=== PATIENT | female | born 1995 | race Caucasian/White ===

== ENCOUNTER 2023-04-03 03:38 | Emergency (ER) | payer OTHER, SELFPAY ==
--- NOTE | 2023-04-03 | ECG_ITS ---
Test Reason : CHEST PAIN Blood Pressure : / mmHG Vent. Rate : 087 BPM Atrial Rate : 087 BPM P-R Int : 132 ms QRS Dur : 080 ms QT Int : 370 ms P-R-T Axes : 076 075 062 degrees QTc Int : 445 ms Normal sinus rhythm Normal ECG No previous ECGs available Referred By: Generic ED Physician Electronically Signed By:GUERRERO GUERRERO MD
--- NOTE | ~2023-04-03 | XR_ITS ---
EXAMINATION: XR CHEST CLINICAL INFORMATION: Chest pain COMPARISON: None available. TECHNIQUE: Frontal view of the chest was obtained. FINDINGS: The lungs are clear with no focal consolidation. No evidence of pneumothorax, pulmonary edema, or pleural effusions. The cardiomediastinal silhouette is unremarkable. No acute osseous findings. XR/XR chest 1V IMPRESSION: No acute cardiopulmonary findings.
[2023-04-03 03:52] VITALS: BP 125/87; PULSE 84; RESP 16; TEMP 36.6; O2SAT 100; BMI 18.2
[2023-04-03 04:09] LABS: MANUAL DIFF FLAG NO
[2023-04-03 04:13] LABS: Basophils Absolute Auto 0.1 X10*3/uL (0.0-0.2); Basophils Percent Auto 0.5 % (0-2); Eosinophils Absolute Auto 0.3 X10*3/uL (0.0-0.4); Eosinophils Percent Auto 2.6 % (0-4); Hematocrit 39.2 % (37.0-47.0); Hemoglobin 13.7 g/dl (12.0-16.0); Imm Gran Abs Auto 0.05 X10*3/uL (0.00-0.03); Imm Gran Pct Auto 0.4 % (0.0-0.4); Lymphocytes Absolute Auto 3.9 X10*3/uL (1.2-4.9); Lymphocytes Percent Auto 33.2 % (20-40); Mean Corpuscular HGB Conc 34.9 g/dl (31.0-35.0); Mean Corpuscular Hemoglobin 32.5 pg (27.0-33.0); Mean Corpuscular Volume 92.9 fL (80.0-98.0); Monocytes Absolute Auto 1.1 X10*3/uL (0.1-1.2); Neutrophils Absolute Auto 6.4 x10*3/uL (2.0-8.3); Neutrophils Percent Auto 54.3 % (45-73); Platelet Count 270 X10*3/uL (160-400); Red Blood Count 4.22 X10*6/uL (4.20-5.50); Red Cell Distribution Width 11.7 % (11.0-16.0); White Blood Count 11.8 X10*3/uL (4.8-10.8)
[2023-04-03 04:30] LABS: Alanine Aminotransferase 36 U/L (0-31); Albumin Level 4.6 g/dL (3.5-5.0); Alkaline Phosphatase 62 U/L (39-117); Anion Gap 13 (12-20); Aspartate Amino Transferase 24 U/L (5-31); Bilirubin Total 0.3 mg/dL (0.0-1.0); Blood Urea Nitrogen 15 mg/dL (9-16); Carbon Dioxide 27 mmol/L (22-29); Chloride 102 mmol/L (96-108); Creatinine Clr Calc Pharmacy 77.9; Estimated Glomerular Filt Rate > 60; Glucose Random 103 mg/dL (60-115); Potassium 3.5 mmol/L (3.3-5.1); Sodium 138 mmol/L (135-145); Total Protein 7.6 g/dL (6.5-8.0)
[2023-04-03 04:37] LABS: HCG Quantitative < 2 mIU/mL; Troponin-I High Sensitivity < 2.7 ng/L (<3.5-17.0)
[2023-04-03 06:12] VITALS: BP 112/70; PULSE 71; RESP 16; TEMP 36.9; O2SAT 99
--- NOTE | 2023-04-03 06:12 | ED_ITS ---
HPI - Chest Pain General Chief Complaint: Chest Pain Stated Complaint: Chest Pain Time Seen by Provider: 04/03/23 05:43 History of Present Illness HPI narrative: The patient is a 27-year-old female who says that she started to experience chest pain and left shoulder pain yesterday afternoon at around 15:00. She says the pain has also been in her neck and in her back. The pain is worse when she takes a deep breath. She has not had any definite fever, sweats, chills. She took aspirin and Tums and did not feel any better. Ultimately she came to the emergency room. She says that her mother has had 3 heart attacks and that her mother had her 1st heart attack at age 34. She is therefore very concerned about her own risks for a heart attack at a young age. Additionally the patient says that she has been a smoker until 2 months ago. Patient is quite certain she is not because she has had a tubal ligation. She is not on any control pills. She has had no pain or swelling in her legs. She has had no abdominal pain. No vomiting. She does not think she has had a fever. Related Data Allergies Allergy/AdvReac Type Severity Reaction Status Date / Time No Known Allergies Allergy Verified 04/03/23 03:52 Review of Systems 2 Review of Systems: Yes all other systems are reviewed and are negative FOR[facility]LY [facility] Social History Social History Advance Directives: No Advance Directives Information Provided: No Physical Exam 2 Vital Signs: Vital Signs: Last Vital Signs Temp 98.5 F 04/03/23 06:12 Pulse 71 04/03/23 06:12 Resp 16 04/03/23 06:12 BP 112/70 04/03/23 06:12 Pulse Ox 99 04/03/23 06:12 O2 Del Method Room Air 04/03/23 06:12 BMI result Body Mass Index 18.2 Const: Other: Patient is awake and alert. She does not appear unwell or uncomfortable. She does not seem in distress in any way. HEENT: Other: The appearance of the face is unremarkable. Mucous membranes moist. Face is symmetrical. Eyes: Other: Pupils are round equal, conjunctivae are clear, extraocular movements intact. Neck: Other: No neck swelling. Moving her neck easily. Chest: Other: No definite chest wall tenderness. Resp: Other: Lungs are clear bilaterally. Cardio: Other: The patient has a regular rate and rhythm. I do not appreciate a murmur. GI: Other: The abdomen is soft nontender. Skin: Other: The skin is dry and unremarkable. Neuro: Other: The patient is awake and alert. She has normal mental status. Normal speech. Face is symmetrical. Moves her extremities symmetrically. Seems grossly neurologically intact Extrem: Other: No peripheral edema. No calf swelling or tenderness. No calf asymmetry. Medications Administered Discontinued Medications Generic Name Dose Route Start Last Admin Trade Name Peggy PRN Reason Stop Dose Admin Ketorolac Tromethamine 15 mg 04/03/23 05:52 04/03/23 06:46 Ketorolac Tromethamine 15 Mg/Ml Vial IVPUSH 04/03/23 05:53 15 mg ONCE ONE Administration Medical Decision Making Medical Decision Making [facility] Narrative: The patient is a 27-year-old here for evaluation of chest pain which is largely pleuritic. She also has back pain and left arm pain. She has a family history of early coronary disease. Her EKG is unremarkable. Her pain has been going on for many hours. Her troponin is undetectable. Her white count is mildly elevated 11.8 within normal differential. Her CRP is undetectable. Her D-dimer is undetectable. Clinically the patient looks well. She does not seem to have an acute coronary syndrome, pulmonary embolism, or any significant infectious process. She was given a dose of ketorolac. She is reassured that no dangerous process seems to be at work. She should follow up with regular doctor Lab Data 04/03/23 04:02 04/03/23 04:02 Labs: Lab Results 04/03/23 04/03/23 Range/Units 04:02 06:45 WBC 11.8 H (4.8-10.8) X10*3/uL RBC 4.22 (4.20-5.50) X10*6/uL Hgb 13.7 (12.0-16.0) g/dl Hct 39.2 (37.0-47.0) % MCV 92.9 (80.0-98.0) fL MCH 32.5 (27.0-33.0) pg MCHC 34.9 (31.0-35.0) g/dl RDW 11.7 (11.0-16.0) % Plt Count 270 (160-400) X10*3/uL MPV 10.0 (9.4-12.3) fL Immature Gran % (Auto) 0.4 (0.0-0.4) % Neut % (Auto) 54.3 (45-73) % Lymph % (Auto) 33.2 (20-40) % [place] % (Auto) 9.0 (2-11) % Eos % (Auto) 2.6 (0-4) % Baso % (Auto) 0.5 (0-2) % Lymph # (Auto) 3.9 (1.2-4.9) X10*3/uL [place] # (Auto) 1.1 (0.1-1.2) X10*3/uL Eos # (Auto) 0.3 (0.0-0.4) X10*3/uL Baso # (Auto) 0.1 (0.0-0.2) X10*3/uL Abs Immat Gran (auto) 0.05 H (0.00-0.03) X10*3/uL Absolute Neuts (auto) 6.4 (2.0-8.3) x10*3/uL Absolute Nucleated RBC 0.000 (0.0-0.012) X10*3/uL Nucleated RBC % (auto) 0.0 (0.0-0.2) /100WBC D-Dimer High Sensitivty < 150 NG/ML Sodium 138 (135-145) mmol/L Potassium 3.5 (3.3-5.1) mmol/L Chloride 102 (96-108) mmol/L Carbon Dioxide 27 (22-29) mmol/L Anion Gap 13 (12-20) BUN 15 (9-16) mg/dL Creatinine 0.87 (0.5-1.4) mg/dL Estim Creat Clear Calc 77.9 Estimated GFR > 60 Random Glucose 103 (60-115) mg/dL Calcium 10.0 (8.4-10.2) mg/dL Total Bilirubin 0.3 (0.0-1.0) mg/dL AST 24 (5-31) U/L ALT 36 H (0-31) U/L Alkaline Phosphatase 62 (39-117) U/L Troponin I High Sens < 2.7 (<3.5-17.0) ng/L C-Reactive Protein < 0.04 (< or = 0.50) mg/dL Total Protein 7.6 (6.5-8.0) g/dL Albumin 4.6 (3.5-5.0) g/dL Beta HCG, Quant < 2 mIU/mL Urine Color Straw Urine Appearance Clear Urine pH 7.0 (5.0-9.0) Ur Specific [place] <= 1.005 (1.005-1.025) Urine Protein Negative (Neg-Trace) mg/dL Urine Glucose (UA) Negative (Negative) mg/dL Urine Ketones Negative (Negative) mg/dL Urine Blood Negative (Negative) Urine Nitrite Negative (Negative) Ur Leukocyte Esterase Negative (Negative) Urine RBC 3-5 H (0-2) /HPF Urine WBC 0-5 (0-5) /HPF Ur Squamous Epith Cells 0-2 (0-2) /HPF Urine Bacteria None Seen (None Seen) Hyaline Casts 0-2 (0-2) /LPF Independent Interpretation I performed an independent interpretation of an: EKG Interpretation: EKG at 03:42 shows normal sinus rhythm at 87 beats per minute. It is a normal EKG. Discharge Plan Discharge Clinical Impression: Chest pain Patient Disposition: Home, Self-Care Additional Instructions: Your testing in the emergency department today was very reassuring. There is no sign of a heart attack or a blood clot in your lungs. There is no sign of an infection. Please use acetaminophen as needed for discomfort. Please follow-up with your regular doctor soon to discuss this further. Return to the emergency room with significantly worse.
[2023-04-03 06:14] LABS: C Reactive Protein < 0.04 mg/dL (< or = 0.50)
[2023-04-03] MEDS: Ketorolac Tromethamine 15 MG/ML VIAL IVPUSH (06:46)
[2023-04-03 07:06] LABS: Appearance Urine Clear; Color Urine Straw; Glucose Urine UA Negative (Negative); Leukocyte Esterase Urine Negative (Negative); Nitrite Urine Negative (Negative); Specific Gravity - Urine <= 1.005 (1.005-1.025); Urine Blood Negative (Negative); Urine Ketones Negative (Negative); Urine Protein Negative (Neg-Trace)
[2023-04-03 07:23] LABS: Bacteria Urine None Seen (None Seen); Hyaline Casts Urine 0-2 /LPF (0-2); Squamous Epithelial Cell Urine 0-2 /HPF (0-2); WBC Urine 0-5 /HPF (0-5)
[2023-04-03 07:26] LABS: D Dimer High Sensitivity < 150 NG/ML
[2023-04-03 08:18] VITALS: BP 132/68; PULSE 78; RESP 18; TEMP 36.8; O2SAT 100
== END 2023-04-03 08:20 | disposition home or self-care (01) ==
PROVIDERS: Emergency Provider Emergency Medicine
DX: R07.9 Chest pain, unspecified (principal); M25.512 Pain in left shoulder; M54.2 Cervicalgia; M54.9 Dorsalgia, unspecified
CPT/HCPCS: 36415; 71045; 80053; 81001; 84484; 84702; 85025; 85379; 86140; 93005; 96374; 99285; J1885

== ENCOUNTER → 2023-04-03 03:42 | Outpatient (BNV) | payer OTHER, SELFPAY | PROVIDERS: Emergency Provider Emergency Medicine; Visit Provider Internal Medicine Cardiovascular Disease | DX: R07.9 Chest pain, unspecified (principal) | CPT/HCPCS: 93010 ==

== ENCOUNTER 2025-03-25 13:31 | Outpatient (AMB) | payer OTHER, SELFPAY ==
[2025-03-25 13:38] VITALS: BP 128/80; PULSE 117; TEMP 36.8; O2SAT 99
--- NOTE | 2025-03-25 13:38 | MHC.PC.OV ---
Vital Signs 03/25/25 13:38 Height 5 ft 6 in BP 128/80 Blood Pressure Location Lt brachial Position Sitting Pulse 117 H Pulse Source Pulse Oximeter Temp 98.3 F Temp Source Temporal Artery Scan Pulse Oximetry (%) 99 Oxygen Delivery Method Room Air Intake Visit Reasons: establish care Allergies latex Allergy (Unknown, Verified 03/25/25 13:49) Redness of Skin Medication List - Last Reconciled 03/25/25 by Sheyla Deshpande PA-C clindamycin phosphate 1% 1 appl topical DAILY dexmethylphenidate 2.5 mg PO BID doxycycline hyclate 100 mg PO BID gabapentin 600 mg PO TID propranolol 40 mg PO BID zolpidem 7.5 mg PO BEDTIME Tobacco use date assessed: 03/25/25 Dental Screening Dental Screen Date: 03/25/25 Did you have a dental visit in the last 12 months?: Yes Did you have a dental problem in the last 6 months where you did not have access to dental care?: No Was dental information given to patient?: Patient has dentist HPI establish care HPI Details 29 year old female coming in for the first time. Presenting for establishment of care and management of multiple chronic conditions. The patient has a history of hidradenitis suppurativa, which is managed with clindamycin gel, oral doxycycline twice daily, and benzoyl peroxide wash. The patient reports chronic back and neck pain, which causes cervicogenic headaches. This has been ongoing for three years, and neck X-rays have been negative. Physical therapy with hands-on manipulation provides temporary relief, while trigger point injections were not effective. The patient manages the pain with gabapentin three times a day. She is currently following with [facility]. 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 The patient feels that physical therapists do not understand the hypermobility, which impacts the effectiveness of treatment. For anxiety and ADHD, the patient follows with a psychiatrist and takes dexmethylphenidate. The patient takes propranolol for anxiety, which was prescribed by a previous primary care provider and has been effective for 15 years. There is a history of passing out, most recently within the last three months, particularly upon standing up quickly. The patient notes that increased salt intake and high water consumption help with these symptoms and is scheduled for a cardiology evaluation in May for a possible POTS diagnosis. Psych: H[facility] eye: [facility] spine: Charli [facility] cardiology: [facility] Surgical History S/P endometrial ablation S/P tubal ligation Family History Father No problems noted. Mother Melanoma Maternal Grandmother Bowel cancer Maternal Grandfather COPD (chronic obstructive pulmonary disease) Heart disease Social History Housing: House Patient Tobacco Use Status: Never used Tobacco service: No Current occupational status: employed Cognitive needs: No Hearing needs: No Vision needs: No Female Reproductive History Menstrual control method: permanent sterilization Permanent Sterilization: BTL Questionnaire PHQ-9 Over the last 2 weeks, how often have you been bothered by any of the following problems? 1. Little interest or pleasure in doing things: not at all 2. Feeling down, depressed, or hopeless: not at all 3. Trouble falling or staying asleep, or sleeping too much: nearly every day 4. Feeling tired or having little energy: nearly every day 5. Poor appetite or overeating: not at all 6. Feeling bad about yourself - or that you are a failure or have let yourself or your family down: not at all 7. Trouble concentrating on things, such as reading the newspaper or watching television: not at all 8. Moving or speaking so slowly that other people could have noticed. Or the opposite - being so fidgety or restless that you have been moving around a lot more than usual: not at all 9. Thoughts that you would be better off or of hurting yourself in some way: not at all Total score: 6 Depression Screening Interpretation: Positive Depression Screening Follow-up: Existing condition and In treatment Depression Screening Done: Yes Source: Developed by Drs. Red Lincoln, Rabia Romero, Barrie Busch and colleagues, with an educational migdalia from [employer]. Thrive Questionnaire Date Thrive assessed: 03/25/25 I am a: Patient AUDIT C Alcohol Use Questionnaire (AUDIT-C) 1. How often do you have a drink containing alcohol?: Never 3. How often do you have six or more drinks on one occasion?: Never Total Score: 0 ANTHONY-7 AMB Questionnaire ANTHONY-7 Date ANTHONY - 7 assessed: 03/25/25 Feeling nervous, anxious, or on edge: 0 = Not at all Not being able to stop or control worryin = Not at all Worrying too much about different things: 0 = Not at all Trouble relaxin = Not at all Being so restless that it is hard to sit still: 0 = Not at all Becoming easily annoyed or irritable: 0 = Not at all Feeling afraid as if something awful might happen: 0 = Not at all Total ANTHONY-7 score (0-4 normal; 5-9 mild; 10-14 moderate; 15-21 severe): 0 Source: Developed by Drs. Red Lincoln, Rabia Romero, Barrie Busch and colleagues, with an educational migdalia from [employer]. ANTHONY-7 Assessment Billing ANTHONY-7 Assessment Tool: ANTHONY-7 Assessment 84976 Review of Systems Const Denies body aches, Denies chills, Denies fever(s), Reports headache(s) and Denies poor appetite Eyes Reports no additional complaints ENT Denies dysphagia, Denies dizziness, Reports headache(s) and Denies odynophagia Card Denies chest pain, Denies syncope, Denies edema, Denies irregular heart rhythm, Denies lightheadedness and Denies dyspnea Resp Denies dyspnea GI Denies abdominal pain, Denies constipation, Denies dysphagia, Denies diarrhea, Denies nausea, Denies odynophagia and Denies vomiting Reports no additional complaints Musc Reports as per HPI, Denies abnormal gait and Reports back pain Skin/Breast Reports system reviewed and no additional complaints, except as documented Neuro Denies abnormal gait, Denies dizziness, Denies syncope and Reports headache(s) Psych Reports no additional complaints Physical exam (Primary Care) Vital Signs: Last Vital Signs Temp 98.3 F 03/25/25 13:38 Pulse 117 H 03/25/25 13:38 BP 128/80 03/25/25 13:38 Pulse Ox 99 03/25/25 13:38 Oxygen Delivery Method Room Air 03/25/25 13:38 Tobacco/Smoking Status: Tobacco use Status Tobacco use date assessed 03/25/25 03/25/25 13:40 Patient Tobacco Use Status Never used Tobacco 03/25/25 14:00 PHQ-9: PHQ-9 Score PHQ-9: Total score 6 03/25/25 14:04 Depression Screening Interpretation: Positive Depression Screening Follow-up: Existing condition and In treatment Thrive Assessment: Date of Thrive Assessment Date Thrive assessed 03/25/25 03/25/25 13:58 Const General: cooperative, healthy appearing, comfortable and no acute distress Orientation/consciousness: patient oriented x3 HENMT Head: Yes normocephalic Ears: hearing grossly normal bilaterally General nose exam: Normal external nose present Eyes General: appearance normal, both eyes and all related structures Conjunctivae: conjunctivae normal Neck Neck: Yes full ROM and Yes no lymphadenopathy Resp Effort & Inspection: normal respiratory effort Auscultation: clear to auscultation bilaterally, no crackles, no rales, no rhonchi and no wheezes Cardio Rate: regular rate Rhythm: regular rhythm Skin General skin exam: no rashes or lesions noted Neuro General: patient oriented x3 Gait exam (Neuro): Normal gait present Extrem General: Yes normal to inspection, Yes full ROM and No edema Psych Affect: normal affect Attitude: cooperative Insight: Good insight present (Psych) Judgement: Good judgement present (Psych) Coding Level of Care Code New Pt Level 4 (76566) Diagnoses Insomnia G47.00 Hidradenitis suppurativa L73.2 ADHD F90.9 Anxiety F41.9 Back pain M54.9 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 A prescription refill for doxycycline was sent to [facility]. It was recommended to add [id number] Hibiclens wash two to three times per week. A referral was placed to [facility] for long-term management, and the patient was informed they will call to schedule an appointment. (3) ADHD: Comment: [facility] Haley King Code(s): F90.9 - Attention-deficit hyperactivity disorder, unspecified type Category: Medical Plan: She will continue to follow with her psychiatrist (4) Anxiety: Code(s): F41.9 - Anxiety disorder, unspecified Category: Medical Plan: The patient will continue propranolol, which has been effective for 15 years. A prescription refill was sent to [facility]. The patient follows with a psychiatrist for overall management and declined a referral to a therapist. 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 The plan is to manage symptoms as they arise, such as fitting for braces for joint dislocations if needed. (7) Cervicogenic migraine: Code(s): G43.809 - Other migraine, not intractable, without status migrainosus Category: Medical Plan: The patient will continue taking gabapentin for chronic neck/back pain and associated headaches. Given the limited success with prior interventions like physical therapy and trigger point injections, a referral to neurology was placed to evaluate for other treatment options, such as Botox injections. A referral was also renewed for [facility] at the patient's request for ongoing care. (8) Syncope: Code(s): R55 - Syncope and collapse Category: Medical Plan: The patient will proceed with a cardiology appointment in May at [facility] for a workup for suspected Postural Orthostatic Tachycardia Syndrome (POTS), which will likely include a tilt-table test. For daily management, the patient should continue with increased salt and water intake to manage symptoms. It was advised to avoid extra salt intake just before the tilt-table test to ensure accurate results. Plan She did recently have imaging and blood work completed through [facility] and plan to obtain these notes This note was constructed using voice recognition software. While every effort has been made to ensure accuracy and ward service supervisor, still areas may have been included sometimes these areas may affect the content or meeting of the given symptoms. Total time spent caring for the patient today was 30 minutes. This includes time spent before the visit reviewing the chart, time spent during the visit, and time spent after the visit and documentation. Patient was informed and verbally consented to the use of an ambient scribe for clinic note documentation during this visit. Orders: Referrals Dermatology Referral L73.2 - Hidradenitis suppurativa Neurology Referral G43.809 - Other migraine, not intractable, without status migrainosus Orthopedics Referral M54.9 - Dorsalgia, unspecified Medications: New chlorhexidine gluconate 4% (Hibiclens) 1 appl topically; 2-3 times per week 237 mL 0RF L73.2 - Hidradenitis suppurativa propranolol 40 mg PO BID 180 tabs 0RF doxycycline hyclate 100 mg PO BID 60 caps 0RF doxycycline hyclate 100 mg PO BID 60 caps 0RF propranolol 40 mg PO BID 180 tabs 0RF
--- OUTSIDE RECORDS SUMMARY | 2025-03-25 18:15 | XMS_ITS | Encounter Summary ---
Author Organization [facility] Address [address] [place] [address] Care Team Providers Care Blind Aide Name Role Phone Pcp, No Primary Care Provider Unavailabl e Encounter Details Date Type Department Care Team (Late st Contact Info) Description 06/17/2023 Scanned Document [facility] ([facility]3] Physicians Department of Orthopaedics & Sports Medicine [address] [phone] Jose Miguel Lin MD [address] [place] [id number] Social History Tobacco Use Types Packs/Day Years Used Date Smoking Tobacco: Never Assessed Comments Unknown Sex and Gender Information Value Date Recorded Sex Assigned at Unknown 04/29/2023 9:35 AM EST Legal Sex Female 9:32 AM EST Gender Identity Female 04/29/2023 9:35 AM EST Sexual Orientation Other 04/29/2023 9: 35 AM EST documented as of this encounter Plan of Treatment Not on file documented as of this encounter Visit Diagnoses Not on filedocumented in this encounter Care Teams Blind Aide Relationship Specialty Start Date End Date Pcp, No PCP - General General Medicine 06/29/24 documented as of this encounter
--- OUTSIDE RECORDS SUMMARY | 2025-03-25 18:15 | XMS_ITS | Clinical Summary ---
Author Organization [facility] [address] [place] [address] [place] [phone] Phone Care Team Providers Care Election Clerk Name Role Phone An Christy MD Primary Care Provider Allergies Active Allergy Reactions Criticality Noted Date Comments Latex 08/30/2024 Medications gabapentin (NEURONTIN) 600 mg tablet Take by mouth 3 (three) times a day. Active sertraline (ZOLOFT) 100 mg tablet Take 1 tablet (100 mg total) by mouth 1 (one) time each day. 90 tablet 4 Active zolpidem (AMBIEN) 5 mg tablet Take 1 tablet (5 mg total) by mouth at bedtime as needed for sleep. Max Daily Amount: 5 mg 28 tablet 4 Active benzoyl peroxide (BENZAC AC) 10 % external wash Apply topically 2 (two) times a day. 226 g 5 Active propranoloL (INDERAL) 20 mg tablet Take 1 tablet (20 mg total) by mouth 3 (three) times a day. 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 Hypermobile joint syndrome of multiple sites Encounters Date Type Department Care Team Description 02/28/2025 Telephone Adult Medicine [address] [phone] Parth Ross PA from Last 3 Months Immunizations Immunization Administration Dates Next Due Pfizer SARS-CoV-2 COVID-19, mRNA, LNP-S, preservative free 12/24/2020,10/20/2020 Surgical History Surgery Date Site/Laterality Comments TUBAL LIGATION 05/02/2021 - 05/01/2022 Performed in [facility] Medical History Medical History Date Comments Sciatica DX:Sciatica Low back pain DX:Low back pain Frozen shoulder DX:Frozen should er Tendinitis DX:Tendinitis High blood pressure DX:High bloo d pressure Family History Medical History Relation Name Comments Arthritis Maternal Grandfather D COPD Maternal Grandfather D Depression Maternal Grandfather D Hypertension Maternal Grandfather D Arthritis Maternal Grandmother V Bowel Cancer Maternal Grandmother V Depression Maternal Grandmother V Hearing loss Maternal Grandmother V Hypertension Maternal Grandmother V Arthritis Mother A Depression Mother A Hypertension Mother A Relation Name Status Comments Maternal Grandfather D Maternal Grandmother V Mother A Social History Tobacco Use Types Packs/Day Years Used Date Smoking Tobacco: Former Cigarettes 0.3 10 2 013 - 2022 Smokeless Tobacco: Former Tobacco Cessation:Counseling Given: Not Answered Alcohol Use Standard Drinks/Week Comments Never 0 (1 standard drink = 0.6 oz pur e alcohol) Housing Instability Answer Date Recorde d Are you worried that in the next 2 months you may not have stable housing? Patient declined 07/03/2024 Food Access & Nutrition Answer Date Rec orded Do you have access to a vari ety of food including fruits and vegetables? Patient declined 07/03/2024 Access to Healthcare Answer Date Record ed Within the last 3 months, gelacio w many times did you visit the emergency department for your medical care? 0 07/03/2024 Health Literacy Answer Date Recorded How often do you need to hav e someone help you when you read instructions, pamphlets, or other written material from your doctor or pharmacy? Never 07/03/2024 Caregiver: How often do you need to have someone help you when you read instructions, pamphlets, or other written material from your doctor or pharmacy? Not on file 07/03/2024 Financial Risk Answer Date Recorded How hard is it for you to pa y for the very basics like food, housing, medical care, and air conditioning / heating? Patient declined 07/03/2024 Transportation Answer Date Recorded Has the lack of transportati on kept you from meetings, work, or from getting things needed for daily living? Patient declined 07/03/2024 Has the lack of transportati on kept you from medical appointments or from getting medications? Patient declined 07/03/2024 Social Isolation Answer Date Recorded How often do you feel lonely or isolated from those around you? Patient declined 07/03/2024 Food Risk Answer Date Recorded Within the past 12 months we worried whether our food would run out before we got money to buy more. Patient declined 025 Within the past 12 months th e food we bought just didn't last and we didn't have money to get more. Patient declined 07/2024 Dependent Care Answer Date Recorded Do you need help finding or paying for care for your loved ones. For example, children's minister or elderly care for an older adult? Patient declined 07/03/2024 Education Answer Date Recorded Do you think completing more education or training, like finishing a GED, going to college, or learning a trade, would be helpful for you? N/A 07/03/2024 Employment and Income Answer Date Recor ded During the last four weeks, have you been actively looking for work? Patient declined 07/03/2024 Living Situation Answer Date Recorded What is your living situation? Unrecognized valu e 07/03/2024 Comments No Sex and Gender Information Value Date Recorded Sex Assigned at Not on file Legal Sex Female 11:05 AM EDT Gender Identity Choose not to disclose 12:11 PM EST Sexual Orientation Bisexual 03/24/2024 12 :11 PM EST Sexual Orientation Something else 03/24/2024 12 :11 PM EST Obstetrics History Last Filed Vital Signs Vital Sign Reading Time Taken Comments Blood Pressure 110/80 09/27/2024 11:36 AM EDT Pulse 78 09/27/2024 11:36 AM EDT Temperature 36.5 C (97.7 F) 09/27/2024 11:36 AM EDT Respiratory Rate 12 09/27/2024 11:36 AM EDT Oxygen Saturation - - Inhaled Oxygen Concentration - - Weight 68.5 kg (151 lb) 01/12/2024 12:31 PM EDT Height 167.6 cm (5' 6 ) 03/30/2024 9:25 AM EST Body Mass Index 24.37 01/12/2024 12:31 PM EDT Plan of Treatment Upcoming Encounters Date Type Department Care Team (Late st Contact Info) Description 05/30/2025 7:50 AM EST Office Visit [facility] [address] [place] [address] [place] [address] Sushil France MD [address] [place] [address] [address] [place] [address] Health Maintenance Due Date Last Done Comments DTaP,Tdap,and Td Vaccines (1 - Tdap) 2013 Hepatitis B Vaccines (1 of 3 - 19+ 3-dose series) 2013 Cholesterol Screening (Lipid Panel) 11/30/2023 HIV Screening 11/30/2023 Hepatitis C Screening 11/30/2023 Hypertension/CHF/CAD Annual BMP Blood Test 12/14/2024 12/15/2023, 12/15/2023 COVID-19 Vaccine ( - 2024- season) 2024 03/04/2024, 08/12/2023, 12/24/2020, Additional history exists Influenza Vaccine (#1) 2024 03/04/2024 Social Influencers of Health Screening 07/03/2025 07/03/2024 Cervical Cancer Screening: HPV 07/14/2028 07/15/2023 RSV Immunization Adult Patients (1 - 1-dose 75+ series) 2069 HPV Vaccines Completed 01/26/2024, 08/30, 07/17/2023 Depression Screening Completed 07/03/2024 HIB Vaccines Aged Out No longer eligi ble based on patient's age to complete this topic Hepatitis A Vaccines Aged Out No long er eligible based on patient's age to complete this topic IPV Vaccines Aged Out No longer eligi ble based on patient's age to complete this topic MMR Vaccines Aged Out No longer eligi ble based on patient's age to complete this topic Meningococcal ACWY Vaccine Aged Out N o longer eligible based on patient's age to complete this topic Meningococcal B Vaccine Aged Out No l onger eligible based on patient's age to complete this topic Pneumococcal Vaccine: Pediatrics (0 to 5 Years) and At-Risk Patients (6 to 49 Years) Aged Out No longer eligible based on patient's age to complete this topic RSV Immunization Patients Under 20 months Aged Out No longer eligible based on patient's age to complete this topic Varicella Vaccines Aged Out No longer eligible based on patient's age to complete this topic Procedures Procedure Name Priority Date/Time Associated Diagnosis Comments HPV Routine 07/15/2023 from Last 3 Months or Most Recently Relevant to Health Maintenance Results * Cervical Cancer Screening: HPV (07/15/2023) Cervical Cancer Screening: HPV No interpreta tion,abstr acted Historical Provider MD HEALTH MAINTENANCE Final Result from Last 3 Months or Most Recently Relevant to Health Maintenance Insurance [address] [id number] [facility] Care Teams Election Clerk Relationship Specialty Start Date End Date An Christy MD [address] [place] [phone] PCP - General Internal Medicine 11/21/23
--- OUTSIDE RECORDS SUMMARY | 2025-03-25 18:15 | XMS_ITS | Encounter Summary ---
Author Organization [facility] Address [address] [place] [address] Care Team Providers Care Political Science Faculty Member Name Role Phone Pcp, No Primary Care Provider Unavailabl e Encounter Details Date Type Department Care Team (Late st Contact Info) Description 07/25/2023 Scanned Document [facility] Department of Orthopaedics & Sports Medicine [address] [phone] Jose Miguel Lin MD [address] [place] [id number] Social History Tobacco Use Types Packs/Day Years [...] on filedocumented in this encounter Care Teams Political Science Faculty Member Relationship Specialty Start Date End Date Pcp, No PCP - General General Medicine 06/29/24 documented as of this encounter
--- OUTSIDE RECORDS SUMMARY | 2025-03-25 18:15 | XMS_ITS ---
Author Name [facility] Organization Unknown Results Test Name/Text Value Interpretation Date Range Source CHLORIDE SERPL [facility] 104.0 mmol/L Normal 12/15/2023 98 - 1 07 [facility] PROT SERPL [facility] 6.9 g/dL Normal 12/15/2023 6.4 - 8.5 [facility] BUN SERPL MCNC 8.0 mg/dL Normal 12/15/2023 7 - 17 [facility] ANION GAP SERPL SCNC 8.0 mmol/L Normal 12/15/2023 5 - 14 [facility] Glomerular filtration rate/1.73 sq M. predicted 78.0 Normal 12/15/2023 60 - [facility] POTASSIUM SERPL [facility] 4.6 mmol/L Normal 12/15/2023 3.5 - 5 .1 [facility] CALCIUM SERPL [facility] 9.8 mg/dL Normal 12/15/2023 8.4 - 10.2 [facility] HCO3 SER SCNC 29.0 mmol/L Normal 12/15/2023 24 - 32 [facility] ALBUMIN SERPL BCG [facility]NC 4.5 g/dL Normal 12/15/2023 3.5 - 5 [facility] ALP SERPL-CCNC 56.0 U/L Normal 12/15/2023 34 - 104 [facility] AST SERPL [facility] 20.0 U/L Normal 12/15/2023 5 - 40 [facility] SODIUM SERPL SCNC 141.0 mmol/L Normal 12/15/2023 135 - 14 5 [facility] CREAT SERPL [facility] 1.0 mg/dL Normal 12/15/2023 0.5 - 1 [facility] BILIRUB SERPL [facility]NC 0.4 mg/dL Normal 12/15/2023 0.3 - 1 [facility] ALT SERPL [facility] 14.0 U/L Normal 12/15/2023 7 - 52 [facility] GLUCOSE SERPL MCNC 93.0 mg/dL Normal 12/15/2023 70 - 199 [facility] cCP IgG SerPl-aCnc 0.7 Normal 12/19/2023 [facility] 25(OH)D3+25(OH)D2 SerPl IA-mCnc 47.0 ng/mL Normal 12/15/2023 30 - 100 [facility] HGB BLD MCNC 13.6 g/dL Normal 12/15/2023 12.5 - 16 [facility] MG EOSINOPHIL NO. BLD AUTO 0.2 K/uL Normal 12/15/2023 0 - 0 .5 [facility] BASOPHILS NFR BLD AUTO 0.6 % Normal 12/15/2023 0 - 2 [facility] WBC NO. BLD AUTO 6.4 K/uL Normal 12/15/2023 4 - 10.5 [facility] PLATELET NO. BLD AUTO 244.0 K/uL Normal 12/15/2023 150 - 450 [facility] NEUTROPHILS NO. BLD AUTO 3.1 K/uL Normal 12/15/2023 1.8 - 7.8 [facility] MONOCYTES NO. BLD AUTO 0.7 K/uL Normal 12/15/2023 0 - 0. 8 [facility] LYMPHOCYTES NO. BLD AUTO 2.4 K/uL Normal 12/15/2023 1 - 3.2 [facility] EOSINOPHIL NFR BLD AUTO 3.6 % Normal 12/15/2023 0 - 6 [facility] PMV BLD AUTO 8.8 fL Normal 12/15/2023 7.4 - 11.4 [facility]G DIFFERENTIAL TYPE AUTOMATED Normal 12/15/2023 [facility] NEUTROPHILS NFR BLD AUTO 47.6 % Normal 12/15/2023 44 - 74 [facility] BASOPHILS IN BLOOD BY AUTOMATED COUNT 0.0 K/uL Normal 12/15/2023 0 - 0.2 [facility] HCT VFR BLD AUTO 39.0 % Normal 12/15/2023 37 - 47 [facility] MCH RBC QN AUTO 33.0 pg Normal 12/15/2023 25 - 33 [facility] MCHC RBC AUTO MCNC 34.9 g/dL Normal 12/15/2023 32 - 36 [facility] LYMPHOCYTES NFR BLD AUTO 37.9 % Normal 12/15/2023 20 - 48 [facility] RBC NO. BLD AUTO 4.12 M/uL Below low normal 12/15/2023 4.2 - 5.4 [facility] RDW RBC AUTO RTO 12.6 % Normal 12/15/2023 12.1 - 16.2 [facility] MONOCYTES NFR BLD AUTO 10.3 % Normal 12/15/2023 2 - 12 [facility] MCV RBC AUTO 94.6 fL Normal 12/15/2023 78 - 100 [facility] MG ESR Bld Qn Photometric 2.0 mm/h Normal 12/15/2023 0 - 20 [facility] B burgdor IgM Ser Ql IA NEGATIVE Normal 12/16/2023 - [facility] History of Medication Use Medication Directions Dispensed Refills Start Date End Date Stat dicloxacillin 500 mg capsule Take 1 capsule every 6 hours by oral route for 10 days. 05/31/2024 active lidocaine (LIDODERM) 5 % APPLY 1 PATCH BY TRANSDERMAL ROUTE 1 TIME PER DAY (MAY WEAR UP TO 12HOURS.) 12/08/2023 active propranolol (INDERAL) 40 MG tablet Take 1 tablet (40 mg total) by mouth 2 (two) times a day. 12/08/2023 active benzoyl peroxide 10 % external wash WASH BY TOPICAL ROUTE 1 TIME PER DAY THE AFFECTED AREA(S) 09/13/2023 active tiZANidine (ZANAFLEX) 2 MG tablet 08/04/2023 active tizanidine 4 mg tablet 1 tablet 3 times a day by oral route. 08/01/2023 active zolpidem (AMBIEN) 5 MG tablet 03/16/2023 active clindamycin (CLEOCIN T) 1 % external solution For external use. 01/31/2023 4 active sertraline (ZOLOFT) 100 MG tablet 01/31/2023 active lidocaine 3 %-hydrocortisone 0.5 % topical cream INSERT 1 APPLICATORFUL BY RECTAL ROUTE 2 TIMES PER DAY 5 completed mupirocin 2 % topical ointment APPLY BY TOPICAL ROUTE 3 TIMES PER DAY A SMALL AMOUNT TO THE AFFECTED AREA 5 completed tizanidine 2 mg tablet TAKE 1 TABLET BY MOUTH TWICE A DAY 5 active amoxicillin 500 mg capsule TAKE 1 CAPSULE BY MOUTH 3 TIMES A DAY 4 completed Betasept Surgical Scrub 4 % topical liquid 4 completed clonidine HCl 0.1 mg tablet TAKE 1 TABLET BY ORAL ROUTE UP TO 3 TIMES PER DAY. 4 completed cyclobenzaprine 10 mg tablet 4 completed eszopiclone 1 mg tablet TAKE 1 TABLET BY MOUTH EVERY DAY AT BEDTIME 4 completed fluconazole 150 mg tablet TAKE 1 TABLET BY MOUTH EVERY DAY ONE DOSE 4 completed fluticasone propionate 50 mcg/actuation nasal spray,suspension 4 completed gabapentin 300 mg capsule TAKE 1 CAPSULE BY MOUTH 3 TIMES A DAY 4 completed meloxicam 7.5 mg tablet 4 completed mirtazapine 15 mg tablet TAKE 1 TABLET BY MOUTH AT BEDTIME 4 completed nystatin-triamcinolo ne 100,000 unit/g-0.1 % topical cream APPLY BY TOPICAL ROUTE 2 TIMES PER DAY TO THE AFFECTED AREA(S) IN THE MORNING AND EVENING 4 completed pantoprazole 20 mg tablet,delayed release TAKE 1 TABLET BY MOUTH EVERY DAY 4 active prazosin 1 mg capsule TAKE 1 CAPSULE BY MOUTH TWICE A DAY 4 completed propranolol 20 mg tablet 4 completed sertraline 100 mg tablet 4 completed sertraline 50 mg tablet TAKE 1 TABLET BY MOUTH EVERY DAY 4 completed trazodone 50 mg tablet 4 completed zaleplon 5 mg capsule TAKE 1 CAPSULE BY MOUTH AT BEDTIME 4 completed dicloxacillin 500 mg capsule active benzoyl peroxide 10 % topical cleanser WASH THE AFFECTED AREA(S) TOPICALLY 1 TIME PER DAY. START ON: 09/19/2023 active clindamycin phosphate 1 % topical solution active clotrimazole-betamet hasone 1 %-0.05 % topical cream PLEASE SEE ATTACHED FOR DETAILED DIRECTIONS active diclofenac 1 % topical gel active dicyclomine 20 mg tablet TAKE 1 TABLET BY MOUTH THREE TIMES A DAY active doxycycline hyclate 100 mg tablet TAKE 1 TABLET BY MOUTH TWICE A DAY active ergocalciferol (vitamin D2) 1,250 mcg (50,000 unit) capsule active gabapentin 600 mg tablet TAKE ONE TABLET BY MOUTH THREE TIMES A DAY 90 DAY SUPPLY active ibuprofen 800 mg tablet TAKE 1 TABLET BY MOUTH EVERY 6 HOURS NEEDED FOR PAIN active lidocaine 5 % topical patch APPLY 1 PATCH BY TRANSDERMAL ROUTE 1 TIME PER DAY (MAY WEAR UP TO 12HOURS.) active propranolol 40 mg tablet TAKE 1 TABLET BY MOUTH TWICE A DAY active Sodium Fluoride 5000 Dry Mouth 1.1 % dental paste APPLY TO TOOTHBRUSH AND BRUSH TWICE DAILY FOR TWO MINUTES. DO NOT EAT, DRINK, OR RINSE FOR 30 MIN active zolpidem 5 mg tablet TAKE 1 TABLET BY MOUTH AT BEDTIME active gabapentin (NEURONTIN) 300 MG capsule Take 1 capsule (300 mg total) by mouth 3 (three) times a day. active No known medications No known medications active UNABLE TO FIND active Allergies Allergen Reaction Severity Comment Documented Date Source Statu s SEASONAL 12/15/2023 [facility] active LATEX ITCHING [facility] LATEX (SUBSTANCE) ITCHING moderate [facility] activ e Problems Problem Status Onset Date Problem Type Date of Resolution Source Hypermobile joint syndrome of multiple sites active 2023-12-15 ProblemAct [facility] Other chest pain active 2023-12-15 ProblemAct [facility] EDS (Samantha-Danlos syndrome) active 2023-12-15 ProblemAct [facility] Frequent fractures of bone active 2023-12-15 ProblemAct [facility] Right ankle pain, unspecified chronicity active EncounterDiagnosisAct [facility] Sprain of right ankle, unspecified ligament, initial encounter active EncounterDiagnosisAct [facility] Immunizations Vaccine Date Source Lot Number Status HPV9 01/26/2024 [facility] [id number] completed HPV9 09/14/2023 [facility] [id number] completed HPV9 07/17/2023 [facility] [id number] completed Encounters Encounter Type Encounter Reason Primary Diagnosis Location Date Ambulatory Encounter for immunization Encounter for immunization [facility], [facility] 05/31/2024 Ambulatory Encounter for immunization Encounter for immunization [facility], [facility] 01/26/2024 Ambulatory 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 [facility], [facility] 09/14/2023 Ambulatory no current diagnosis no current diagnosis [facility] 07/15/2023 Ambulatory Pain in right ankle and joints of right foot Pain in right ankle and joints of right foot [facility] 05/24/2023 Ambulatory Pain in right ankle and joints of right foot Pain in right ankle and joints of right foot [facility] 05/18/2023 Ambulatory [facility] 04/29/2023 Ambulatory Pain in right ankle and joints of right foot Pain in right ankle and joints of right foot [facility] 04/29/2023 Care Team Organization Name Specialty Phone Email Start Date End Da te [facility] NO PCP Primary Care 06/30/2024 [facility] 07/17/2023 [facility] 07/16/2023 [facility] 04/29/2023 07/18/2024 [facility] 04/29/2023 04/29/2023
--- OUTSIDE RECORDS SUMMARY | 2025-03-25 18:15 | XMS_ITS | Encounter Summary ---
Author Organization [facility] Address [address] [place] [address] Care Team Providers Care Supervisor Type Disk Quality Control Name Role Phone Pcp, No Primary Care Provider Unavailabl e Encounter Details Date Type Department Care Team (Late st Contact Info) Description 04/29/2023 Scanned Document [facility]icians Department of Orthopaedics & Sports Medicine [address] [phone] Jose Miguel Lin MD [address] [place] [id number] Social History Tobacco Use Types Packs/Day Years [...] on filedocumented in this encounter Care Teams Supervisor Type Disk Quality Control Relationship Specialty Start Date End Date Pcp, No PCP - General General Medicine 06/29/24 documented as of this encounter
--- OUTSIDE RECORDS SUMMARY | 2025-03-25 18:15 | XMS_ITS | Encounter Summary ---
Author Organization [facility] Address [address] [place] [address] Care Team Providers Care Silo Operator Name Role Phone Pcp, No Primary Care Provider Unavailabl e Encounter Details Date Type Department Care Team (Late st Contact Info) Description 06/30/2023 Scanned Document [facility] Department of Orthopaedics & Sports Medicine [address] [phone] Jose Miguel Lin MD [address] [place] [phone] Social History Tobacco Use Types Packs/Day Years [...] on filedocumented in this encounter Care Teams Silo Operator Relationship Specialty Start Date End Date Pcp, No PCP - General General Medicine 06/29/24 documented as of this encounter
--- OUTSIDE RECORDS SUMMARY | 2025-03-25 18:16 | XMS_ITS | Clinical Summary ---
Author Organization [facility] Address [address] [place] [address] Care Team Providers Care Supervisor Extruding Department Name Role Phone Pcp, No Primary Care Provider Unavailabl e Allergies No known active allergies Medications No known medications Social History Tobacco Use Types Packs/Day Years Used Date Smoking Tobacco: Never Assessed Comments Unknown Sex and Gender Information Value Date Recorded Sex Assigned at Unknown 04/29/2023 9:35 AM EST Legal Sex Female 9:32 AM EST Gender Identity Female 04/29/2023 9:35 AM EST Sexual Orientation Other 04/29/2023 9: 35 AM EST Last Filed Vital Signs Vital Sign Reading Time Taken Comments Blood Pressure - - Pulse - - Temperature - - Respiratory Rate - - Oxygen Saturation - - Inhaled Oxygen Concentration - - Weight 49.9 kg (110 lb) 04/29/2023 9:43 AM EST Height 167.6 cm (5' 6 ) 04/29/2023 9:43 AM EST Body Mass Index 17.75 04/29/2023 9:43 AM EST Plan of Treatment Health Maintenance Due Date Last Done Comments Hepatitis C Virus Screening 1994 HIV Screening 2007 DTaP/Tdap/Td Vaccines (1 - Tdap) 2013 Hepatitis B Vaccines (1 of 3 - 19+ 3-dose series) 2013 Influenza Vaccine 11/30/2024 COVID-19 Vaccine ( - 2023-2 5 season) 2024 Pap Smear (Ages 21-65) 07/14/2026 07/15/2023 HPV Vaccines (No Doses Required) Completed Pneumococcal Vaccine: Pediat aniyah (0-5 Years) and At-Risk Patients (6 to 49 Years) Aged Out No longer eligible b ased on patient's age to complete this topic Procedures Procedure Name Priority Date/Time Associated Diagnosis Comments THINPREP PAP(HYDROSTATIC TESTER) HPV SCR RFX HPV 16,18/45 Routine 07/15/2023 12:00 AM EDT from Last 3 Months or Most Recently Relevant to Health Maintenance Results * ThinPrep Pap(Kick Press Operator) HPV Scr Rfx HPV 16,18/45 (07/15/2023 12:00 AM EDT) Report Report [facility] Comment: Final Gynecological Cytology Report ThinPrep Pap Test, HPV Screen, Reflex HPV Genotype SPECIMEN ADEQUACY: SATISFACTORY FOR EVALUATION; ENDOCERVICAL/TRANSFORMATION ZONE COMPONENT PRESENT. INTERPRETATION: NEGATIVE FOR INTRAEPITHELIAL LESION OR MALIGNANCY. Electronically Signed: Basilia Navarro CT (ASCP) CLINICAL INFORMATION: LMP: NG Clinical History: RTN Biopsy Date: NG Specimen Source: Cervix, Endocervix Previous Pap Date: NG HPV RESULTS: HPV mRNA E6/E7 [id number] Approved: 07/17/23 Negative REF RANGE: Negative CPT Codes: 79169 ICD Codes: Z12.4 07/15/2023 07/16/2023 1:4 9 AM EDT us Andria Garcia MD LAB AMB PATH/CYTO ORDERABLES nal Result [facility] [address] [place], [place] from Last 3 Months or Most Recently Relevant to Health Maintenance Insurance [facility] Care Teams Supervisor Extruding Department Relationship Specialty Start Date End Date Pcp, No PCP - General General Medicine 06/29/24
--- OUTSIDE RECORDS SUMMARY | 2025-03-25 18:16 | XMS_ITS | Clinical Summary ---
Author Organization [facility] Address [address] [place] [address] Care Team Providers Care Ore Smelter Name Role Phone Unavailable Primary Care Provider Unavailabl e Allergies Active Allergy Reactions Criticality Noted Date Comments Latex Itching Medium 12/15/2023 Seasonal 12/15/2023 Medications Medication Sig Dispensed Refills Start Date End Date Status benzoyl peroxide 10 % external wash WASH BY TOPICAL ROUTE 1 TIME PER DAY THE AFFECTED AREA(S) 0 09/13/2023 Active lidocaine (LIDODERM) 5 % APPLY 1 PATCH BY TRANSDERMAL ROUTE 1 TIME PER DAY (MAY WEAR UP TO 12HOURS.) 0 12/08/2023 Active propranolol (INDERAL) 40 MG tablet Take 1 tablet (40 mg total) by mouth 2 (two) times a day. 0 12/08/2023 Active sertraline (ZOLOFT) 100 MG tablet 0 01/31/2023 Active tiZANidine (ZANAFLEX) 2 MG tablet 0 08/04/2023 Active zolpidem (AMBIEN) 5 MG tablet 0 03/16/2023 Active UNABLE TO FIND 0 Active gabapentin (NEURONTIN) 300 MG capsule Take 1 capsule (300 mg total) by mouth 3 (three) times a day. 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 Frequent fractures of bone 12/15/2023 Other chest pain 12/15/2023 Family History Medical History Relation Name Comments Arthritis Maternal Grandfather D COPD Maternal Grandfather D Depression Maternal Grandfather D Hypertension Maternal Grandfather D Arthritis Maternal Grandmother V Cancer Maternal Grandmother V Depression Maternal Grandmother V Hearing loss Maternal Grandmother V Hypertension Maternal Grandmother V Arthritis Mother A Depression Mother A Hypertension Mother A Relation Name Status Comments Maternal Grandfather D Maternal Grandmother V Mother A Social History Tobacco Use Types Packs/Day Years Used Date Smoking Tobacco: Former Cigarettes 10 Smokeless Tobacco: Former Alcohol Use Standard Drinks/Week Comments Never 0 (1 standard drink = 0.6 oz pur e alcohol) Sex and Gender Information Value Date Recorded Sex Assigned at Not on file Gender Identity Not on file Sexual Orientation Not on file Job Start Date Occupation Industry Not on file Not on file Not on file Last Filed Vital Signs Vital Sign Reading Time Taken Comments Blood Pressure 104/60 01/12/2024 12:31 PM EDT Pulse 81 12/15/2023 1:09 PM EDT Temperature - - Respiratory Rate - - Oxygen Saturation 98% 12/15/2023 1:09 PM EDT Inhaled Oxygen Concentration - - Weight 68.5 kg (151 lb) 01/12/2024 12:31 PM EDT Height 167.6 cm (5' 6 ) 01/12/2024 12:31 PM EDT Body Mass Index 24.37 01/12/2024 12:31 PM EDT Plan of Treatment Health Maintenance Due Date Last Done Comments Hepatitis C Screening 1994 DTap / Tdap / Td (5 - Tdap) 05/14/200503/02, 1994, 1994, Additional history exists Depression Screening 2006 Preventative Health Evaluation 2012 Cervical Cancer Screening (Pap Smear) 2015 Hepatitis B Vaccines (3 of 3 - Hep B Twinrix 3-dose series) 02/09/2023 09/09/2022, 03/30/2022 COVID-19 Vaccine (3 - season) 2024 12/24/2020, 10/20/2020 Influenza Vaccine (#1) 2024 09/09/2022, 2021 Pneumococcal Vaccine Aged Out No long er eligible based on patient's age to complete this topic RSV Ped < 20 months Aged Out No longe r eligible based on patient's age to complete this topic [address] [place] [id number]
== END 2025-03-25 14:30 | disposition home or self-care (01) ==
LOC: HO.HMCH 13:31
DX: G47.00 Insomnia, unspecified (principal); L73.2 Hidradenitis suppurativa; F90.9 Attention-deficit hyperactivity disorder, unspecified type; F41.9 Anxiety disorder, unspecified; M54.9 Dorsalgia, unspecified; M35.7 Hypermobility syndrome; G43.809 Other migraine, not intractable, without status migrainosus; R55 Syncope and collapse

== ENCOUNTER → 2025-03-25 13:31 | Outpatient (BNVA) | payer OTHER, SELFPAY | DX: R55 Syncope and collapse (principal); G47.00 Insomnia, unspecified; L73.2 Hidradenitis suppurativa; F90.9 Attention-deficit hyperactivity disorder, unspecified type; F41.9 Anxiety disorder, unspecified; M54.9 Dorsalgia, unspecified; M35.7 Hypermobility syndrome; G43.809 Other migraine, not intractable, without status migrainosus; Z13.31 Encounter for screening for depression | CPT/HCPCS: 96127; 99202 ==

== ENCOUNTER 2025-04-23 09:29 | Outpatient (AMB) | payer OTHER, SELFPAY ==
[2025-04-23 09:49] VITALS: BP 120/72; PULSE 84; RESP 18; O2SAT 98
--- NOTE | 2025-04-23 09:49 | MHC.PC.OV ---
Vital Signs 04/23/25 09:49 Height 5 ft 6 in BMI Reason not done Patient refused/unable BP 120/72 Blood Pressure Location Lt brachial Position Sitting Respiration 18 Pulse 84 Pulse Source Pulse Oximeter Temp Source Temporal Artery Scan Pulse Oximetry (%) 98 Oxygen Delivery Method Room Air Intake Visit Reasons: follow up [place] Required: No Accompanied by: Self / Same As Patient Allergies latex Allergy (Unknown, Verified 04/23/25 09:58) Redness of Skin Medication List - Last Reconciled 04/23/25 by Sheyla Deshpande PA-C chlorhexidine gluconate 4% (Hibiclens) 1 appl topically; 2-3 times per week clindamycin phosphate 1% 1 appl topical DAILY dexmethylphenidate 2.5 mg PO BID doxycycline hyclate 100 mg PO BID gabapentin 600 mg PO TID propranolol 40 mg PO BID zolpidem 7.5 mg PO BEDTIME Tobacco use date assessed: 04/23/25 Dental Screening Dental Screen Date: 04/23/25 Did you have a dental visit in the last 12 months?: Yes Did you have a dental problem in the last 6 months where you did not have access to dental care?: No Was dental information given to patient?: Patient has dentist HPI follow up HPI Details 29 year old female with past medical history of insomnia, anxiety, ADHD, benign joint hypermobility and cervicogenic migraine. Presenting for follow-up to address multiple ongoing symptoms including skin flare-ups, joint pain, hair growth, and mood changes. The patient reports a history of insomnia since she was [age] years old, with difficulty falling and staying asleep, for which she takes zolpidem. She has tried other medications such as trazodone and bupropion in the past without success. She is experiencing flare-ups across her whole body, including intense cystic acne on her face that started in the last year. For her skin, she is currently using doxycycline, clindamycin, and Hibiclens, and has tried various hbnc-lqi-rcbmloa products. She feels that dermatology has previously only focused on her hidradenitis suppurativa. Her gynecological history is notable for having her tubes removed and a uterine ablation, with her last menses occurring over 10 years ago. She also had a coil for eight years and believes her hormones have been imbalanced for the past two years, following a surgery. She reports issues that she really use to related to hormone imbalance and is interested in starting on hormone replacement treatment. She does have migraine with aura making her ineligible for estrogen containing products. The patient reports a range of other symptoms, including random inflammation of muscles, teeth, and skin; joint pain; body hair growth with a small amount on her face; skin tag growth; oily skin; hot flashes; low mood; and brain fog. She was on control about 12-13 years ago but experienced significant side effects, primarily migraines. [facility] Surgical History S/P endometrial ablation S/P tubal ligation Family History Father No problems noted. Mother Melanoma Maternal Grandmother Bowel cancer Maternal Grandfather COPD (chronic obstructive pulmonary disease) Heart disease Social History Housing: House Patient Tobacco Use Status: Never used Tobacco service: No Current occupational status: employed Cognitive needs: No Hearing needs: No Vision needs: No Questionnaire Thrive Questionnaire Date Thrive assessed: 04/23/25 I am a: Patient What is your living situation today?: I choose not to answer this question Within the past 12 months, did you worry whether your food would run out before you got money to buy more?: I choose not to answer this question Do you have trouble paying for medicines?: I choose not to answer this question Do you have trouble getting transportation to medical appointments?: I choose not to answer this question Do you have trouble paying your heating and electricity bill?: I choose not to answer this question Do you have trouble taking care of your child, family member or friend?: I choose not to answer this question Do you have trouble with day-to-day activities such as bathing, preparing meals, shopping, managing finances, etc.?: I choose not to answer this question Are you currently unemployed and looking for a job?: I choose not to answer this question Are you interested in more education?: I choose not to answer this question Please select the resources that you would like help with: None Currently or been in a relationship where the following occur: I choose not to answer THRIVE Score: 0 AUDIT C Alcohol Use Questionnaire (AUDIT-C) 1. How often do you have a drink containing alcohol?: Never 3. How often do you have six or more drinks on one occasion?: Never Total Score: 0 ANTHONY-7 AMB Questionnaire ANTHONY-7 Date ANTHONY - 7 assessed: 03/25/25 Source: Developed by Drs. Red Lincoln, Rabia Romero, Barrie Busch and colleagues, with an educational migdalia from [employer]. Review of Systems Const Reports body aches, Reports chills, Denies fever(s), Denies headache(s) and Denies poor appetite Eyes Reports no additional complaints ENT Denies dizziness and Denies headache(s) Card Denies chest pain, Denies lightheadedness and Denies dyspnea Resp Denies dyspnea GI Denies nausea and Denies vomiting Reports no additional complaints Musc Reports no additional complaints and Denies abnormal gait Skin/Breast Reports system reviewed and no additional complaints, except as documented Neuro Denies abnormal gait, Denies dizziness and Denies headache(s) Psych Reports no additional complaints Physical exam (Primary Care) Vital Signs: Last Vital Signs Pulse 84 04/23/25 09:49 Resp 18 04/23/25 09:49 BP 120/72 04/23/25 09:49 Pulse Ox 98 04/23/25 09:49 Oxygen Delivery Method Room Air 04/23/25 09:49 Tobacco/Smoking Status: Tobacco use Status Tobacco use date assessed 04/23/25 04/23/25 09:55 Patient Tobacco Use Status Never used Tobacco 04/23/25 09:55 Thrive Assessment: Date of Thrive Assessment Date Thrive assessed 04/23/25 04/23/25 09:55 Currently or been in a relationship where the following occur: I choose not to answer Const General: cooperative, healthy appearing, comfortable and no acute distress Orientation/consciousness: patient oriented x3 HENMT Head: Yes normocephalic Ears: hearing grossly normal bilaterally General nose exam: Normal external nose present Eyes General: appearance normal, both eyes and all related structures Conjunctivae: conjunctivae normal Neck Neck: Yes full ROM and Yes no lymphadenopathy Resp Effort & Inspection: normal respiratory effort Auscultation: clear to auscultation bilaterally, no crackles, no rales, no rhonchi and no wheezes Cardio Rate: regular rate Rhythm: regular rhythm Skin General skin exam: no rashes or lesions noted Neuro General: patient oriented x3 Gait exam (Neuro): Normal gait present Extrem General: Yes normal to inspection, Yes full ROM and No edema Psych Affect: normal affect Attitude: cooperative Insight: Good insight present (Psych) Judgement: Good judgement present (Psych) Coding Level of Care Code Est Pt Level 4 (60038) Diagnoses Hidradenitis suppurativa L73.2 Benign joint hypermobility M35.7 Syncope R55 Hirsutism L68.0 Joint pain M25.50 Insomnia G47.00 Assessment & Plan Assessment & Plan (1) Hidradenitis suppurativa: Code(s): L73.2 - Hidradenitis suppurativa Category: Medical Plan: The patient is experiencing intense cystic acne on her face along with flare-ups related to hidradenitis suppurativa. She is already on significant treatments including doxycycline, clindamycin, and Hibiclens. Given that she is on maximal medical therapy that can be provided in primary care, a referral to dermatology is necessary for consideration of more advanced treatments, such as oral retinoids. The patient will be instructed to call the dermatology office to schedule this appointment. We discussed potentially starting control, but due to her history of migraine with aura, estrogen-containing products are contraindicated. We will first assess her hormone levels via bloodwork before considering a progesterone-only option. (2) Benign joint hypermobility: Code(s): M35.7 - Hypermobility syndrome Category: Medical Plan: It was discussed that finding an industrial relations specialist for Samantha-Danlos syndrome in the area is difficult. The plan is to manage symptoms as they arise, such as fitting for braces for joint dislocations if needed. (3) Syncope: Code(s): R55 - Syncope and collapse Category: Medical Plan: The patient will proceed with a cardiology appointment in May at [place] for a workup for suspected Postural Orthostatic Tachycardia Syndrome (POTS), which will likely include a tilt-table test. For daily management, the patient should continue with increased salt and water intake to manage symptoms. It was advised to avoid extra salt intake just before the tilt-table test to ensure accurate results. (4) Hirsutism: Code(s): L68.0 - Hirsutism Category: Medical Plan: The patient is experiencing symptoms such as hot flashes and body hair growth, which may be related to a hormonal imbalance, possibly early menopause secondary to her history of tubal ligation and uterine ablation. Polycystic Ovary Syndrome (PCOS) was considered, though she does not fit the classic clinical picture. A hormone panel including estrogen, FSH, LH, and prolactin has been ordered to evaluate her hormonal status. The option of a gynecology consultation was also discussed for further management. (5) Joint pain: Comment: [facility] Code(s): M25.50 - Pain in unspecified joint Category: Medical Plan: The patient reports non-specific symptoms including joint pain, inflammation, low mood, and brain fog. The differential diagnosis is broad and includes autoimmune conditions, Lyme disease, and hormonal imbalances. To investigate these possibilities, a comprehensive lab workup has been ordered, including an TIM, inflammatory markers, a rheumatoid factor, a Lyme panel, and a hormone panel (estrogen, FSH, LH, prolactin). Follow-up will occur upon receipt of these results. (6) Insomnia: Code(s): G47.00 - Insomnia, unspecified Category: Medical Plan: The patient has a long-standing history of insomnia since childhood and currently takes Ambien 7.5 mg. She is hesitant to alter her medication regimen, including a potential dose increase, because she is dissatisfied with her current psychiatrist but fears losing the prescription if she seeks a new provider. Past medication trials with trazodone and bupropion were ineffective. No changes to her sleep medication will be made at this time. Plan This note was constructed using voice recognition software. While every effort has been made to ensure accuracy and double back operator, still areas may have been included sometimes these areas may affect the content or meeting of the given symptoms. Total time spent caring for the patient today was 30 minutes. This includes time spent before the visit reviewing the chart, time spent during the visit, and time spent after the visit and documentation. Patient was informed and verbally consented to the use of an ambient scribe for clinic note documentation during this visit. Orders: Orders Estrogen Today L68.0 - Hirsutism Erythrocyte Sedimentation Rate Today M25.50 - Pain in unspecified joint Ferritin Today M25.50 - Pain in unspecified joint TIM Reflex Titer and Pattern Today M25.50 - Pain in unspecified joint Rheumatoid Factor Today M25.50 - Pain in unspecified joint Lutenizing Hormone Today L68.0 - Hirsutism Follicle Stimulating Hormone Today L68.0 - Hirsutism Prolactin Today L68.0 - Hirsutism Lyme IgG/IgM w/reflex to WB Today M25.50 - Pain in unspecified joint C Reactive Protein Today M25.50 - Pain in unspecified joint Creatine Kinase Total Today M25.50 - Pain in unspecified joint
--- OUTSIDE RECORDS SUMMARY | 2025-04-23 10:16 | XMS_ITS | Encounter Summary ---
Author Organization [facility] Address [address] [place] [address] Care Team Providers Care Duplex Trimmer Name Role Phone Pcp, No Primary Care Provider Unavailabl e Encounter Details Date Type Department Care Team (Late st Contact Info) Description 06/17/2023 Scanned Document [facility] Department of Orthopaedics & Sports Medicine [address] [phone] Jose Miguel Lin MD [address] [place] [id number] Social History Tobacco Use Types Packs/Day Years [...] on filedocumented in this encounter Care Teams Duplex Trimmer Relationship Specialty Start Date End Date Pcp, No PCP - General General Medicine 06/29/24 documented as of this encounter
--- OUTSIDE RECORDS SUMMARY | 2025-04-23 10:16 | XMS_ITS | Clinical Summary ---
Author Organization [facility] Address [address] [place] [address] Care Team Providers Care Instructional Supervisor Name Role Phone Pcp, No Primary Care [...] Influenza Vaccine 11/30/2024 COVID-19 Vaccine ( - 2024-2 6 season) 2024 Pap Smear (Ages 21-65) 07/14/2026 07/15/2023 HPV Vaccines (No Doses Required) Completed Pneumococcal Vaccine: Pediat aniyah (0-5 Years) and At-Risk Patients (6 to 49 Years) Aged Out No longer eligible b ased on patient's age to complete this topic Procedures Procedure Name Priority Date/Time Associated Diagnosis Comments THINPREP PAP(BRAKE LININGS COATER) HPV SCR RFX HPV 16,18/45 Routine 07/15/2023 12:00 AM EDT from Last 3 Months or Most Recently Relevant to Health Maintenance Results * ThinPrep Pap(Geospatial Applications Developer) HPV Scr Rfx HPV 16,18/45 (07/15/2023 12:00 [...] Date: NG HPV RESULTS: HPV mRNA E6/E7 [id number] Approved: 07/17/23 Negative REF RANGE: Negative CPT Codes: 92868 ICD Codes: Z12.4 07/15/2023 07/16/2023 1:4 9 AM EDT us Andria Garcia MD LAB AMB PATH/CYTO ORDERABLES nal Result [facility] [address] [place], [place] from Last 3 Months or Most Recently Relevant to Health Maintenance Insurance [facility] Care Teams Instructional Supervisor Relationship Specialty Start Date End Date Pcp, No PCP - General General Medicine 06/29/24
--- OUTSIDE RECORDS SUMMARY | 2025-04-23 10:16 | XMS_ITS | Encounter Summary ---
Author Organization [facility] Address [address] [place] [address] Care Team Providers Care Bar Useful Or Busser Name Role Phone Pcp, No Primary Care Provider Unavailabl e Encounter Details Date Type Department Care Team (Late st Contact Info) Description 04/29/2023 Scanned Document [facility] Department of Orthopaedics & Sports Medicine [address] [phone] Jose Miguel Lin MD [address] [place] [phone] Social History Tobacco Use Types Packs/Day Years [...] on filedocumented in this encounter Care Teams Bar Useful Or Busser Relationship Specialty Start Date End Date Pcp, No PCP - General General Medicine 06/29/24 documented as of this encounter
--- OUTSIDE RECORDS SUMMARY | 2025-04-23 10:16 | XMS_ITS | Encounter Summary ---
Author Organization [facility] Address [address] [place] [address] Care Team Providers Care Carrot Grader Inspector Name Role Phone Pcp, No Primary Care Provider Unavailabl e Encounter Details Date Type Department Care Team (Late st Contact Info) Description 06/30/2023 Scanned Document [facility] Department of Orthopaedics & Sports Medicine [address] [phone] Jose Miguel Lin MD [address] [place] [phone] Social History Tobacco Use Types Packs/Day Years [...] on filedocumented in this encounter Care Teams Carrot Grader Inspector Relationship Specialty Start Date End Date Pcp, No PCP - General General Medicine 06/29/24 documented as of this encounter
--- OUTSIDE RECORDS SUMMARY | 2025-04-23 10:16 | XMS_ITS | Clinical Summary ---
Author Organization [facility] Prior to 09/29/24 Address [address] [place] [address] Care Team Providers Care Retail Loss Prevention Specialist Name Role Phone Unavailable Primary Care Provider [...] complete this topic [address] [place] [phone]
--- OUTSIDE RECORDS SUMMARY | 2025-04-23 10:16 | XMS_ITS | Encounter Summary ---
Author Organization [facility] Address [address] [place] [address] Care Team Providers Care Home Companion Name Role Phone Pcp, No Primary Care Provider Unavailabl e Encounter Details Date Type Department Care Team (Late st Contact Info) Description 07/25/2023 Scanned Document [facility] Department of Orthopaedics & Sports Medicine [address] [phone] Jose Miguel Lin MD [address] [place] [id number] Social History Tobacco Use Types Packs/Day Years [...] on filedocumented in this encounter Care Teams Home Companion Relationship Specialty Start Date End Date Pcp, No PCP - General General Medicine 06/29/24 documented as of this encounter
--- OUTSIDE RECORDS SUMMARY | 2025-04-23 10:16 | XMS_ITS | Clinical Summary ---
Author Organization [facility] [address] [place] [address] [place] [phone] Phone Care Team Providers Care Asbestos Cloth Inspector Name Role Phone An Christy MD Primary Care Provider [phone] Allergies Active Allergy Reactions Criticality Noted Date [...] Care Team Description 02/28/2025 Telephone Adult Medicine [address] [phone] Parth Ross PA from Last [...] care for your loved ones. For example, attendant children's institution or elderly care for an older adult? [...] Something else 03/24/2024 12 :11 PM EST Last Filed Vital Signs Vital Sign [...] Description 05/30/2025 7:50 AM EST Office Visit [facility] [address] [place] [address] [place] [phone] Sushil France MD [address] [place] [address] [address] [place] [phone] Health Maintenance Due Date Last Done Comments Drug Screen 1994 Non-Opioid Controlled Substance Agreement 1994 DTaP,Tdap,and Td Vaccines (1 - Tdap) 2013 Hepatitis B Vaccines (1 of 3 - 19+ 3-dose series) 2013 Cholesterol Screening (Lipid Panel) 11/30/2023 HIV Screening 11/30/2023 Hepatitis C Screening 11/30/2023 Hypertension/CHF/CAD Annual BMP Blood Test 12/14/2024 12/15/2023, 12/15/2023 COVID-19 Vaccine ( season) 2024 03/04/2024, 08/12/2023, 12/24/2020, Additional history [...] Cancer Screening: HPV No interpreta tion,abstr acted us Historical Provider HEALTH MAINTENANCE Final Result from Last 3 Months or Most Recently Relevant to Health Maintenance Insurance [address] [place] [phone] [facility] Care Teams Asbestos Cloth Inspector Relationship Specialty Start Date End Date An Christy MD [address] [place] [phone] PCP - General Internal Medicine 11/21/23
== END 2025-04-23 10:38 | disposition home or self-care (01) ==
LOC: HO.HMCH 09:29
DX: L73.2 Hidradenitis suppurativa (principal); M35.7 Hypermobility syndrome; R55 Syncope and collapse; L68.0 Hirsutism; M25.50 Pain in unspecified joint; G47.00 Insomnia, unspecified

== ENCOUNTER → 2025-04-23 09:29 | Outpatient (BNVA) | payer OTHER, SELFPAY | DX: R55 Syncope and collapse (principal); L73.2 Hidradenitis suppurativa; M35.7 Hypermobility syndrome; L68.0 Hirsutism; M25.50 Pain in unspecified joint; G47.00 Insomnia, unspecified; Z79.899 Other long term (current) drug therapy | CPT/HCPCS: 99212 ==